=== PATIENT | male | born 1940 | race Caucasian/White ===

== ENCOUNTER 2017-06-15 05:39 | Observation (INO) | payer MEDICARE ==
[2017-06-15] MEDS ORDERED: ANCEF/STERILE WATER 2 GM/20 ML 2 GM/20 ML SYRINGE IV SCH (06:00)
[2017-06-15] MEDS ORDERED: NACL BACTERIOSTATIC INFILTRATI ONE (06:21)
[2017-06-15] MEDS ORDERED: SUBLIMAZE ONE (07:22)
[2017-06-15] MEDS ORDERED: DIPRIVAN 10 MG/ML IV ONE (07:23)
[2017-06-15] MEDS ORDERED: ZEMURON IV ONE (07:24)
[2017-06-15] MEDS ORDERED: MARCAINE-EPI/PF 0.5%-1:200,000 INFILTRATI ONE ×2 (07:27→08:32)
--- NOTE | 2017-06-15 07:28 | Anesthesia Consultation ---
Anesthesia Consult and Med Hx Date of service: 06/15/17 - Airway Anesthetic Teeth Evaluation: Good (some missing teeth) ROM Head & Neck: Adequate - Pre-Operative Health Status ASA Pre-Surgery Classification: ASA2 Proposed Anesthetic Plan: General - Pulmonary Hx Smoking: Yes (1/2 PPD X 60 YRS) Hx Sleep Apnea: No (DEYSI PRE SCREEN HIGH RISK) - Cardiovascular System Hx Hypertension: Yes (X 20 YRS, no meds) - Hematic Hx Anemia: No - Other Systems Hx Cancer: No
[2017-06-15] MEDS ORDERED: ZOFRAN ONE (07:30)
[2017-06-15] MEDS ORDERED: XYLOCAINE MPF 2% ONE (07:30)
[2017-06-15] MEDS ORDERED: ceFAZolin 2 GM in NACL 0.9% 100 ML IV ONE (07:30)
[2017-06-15] MEDS ORDERED: DECADRON ONE (07:30)
--- NOTE | 2017-06-15 07:31 | Anesthesia Day of Surgery ---
Anesthesia Day of Surgery - Day of Surgery Patient Examined: Yes Patient H&P Reviewed: Yes Patient is NPO: Yes
[2017-06-15] MEDS ORDERED: NACL 0.9% 1000 ML 1,000 ML ONE (07:34)
[2017-06-15] MEDS ORDERED: PEPCID IV ONE (07:34)
[2017-06-15] MEDS ORDERED: NACL 0.9% 1000 ML 1,000 ML IV SCH (08:00)
[2017-06-15] MEDS ORDERED: VERSED IV NR (08:00)
[2017-06-15] MEDS ORDERED: PEPCID IV NR (08:00)
[2017-06-15] MEDS ORDERED: ROBINUL ONE ×2 (08:08→08:38)
[2017-06-15] MEDS ORDERED: PROAIR IH ONE (08:08)
[2017-06-15] MEDS ORDERED: NEOSTIGMINE ONE (08:08)
[2017-06-15] MEDS ORDERED: NACL 0.9% 100 ML ONE (08:23)
[2017-06-15] MEDS ORDERED: NEO SYNEPHRINE ONE (08:23)
[2017-06-15] MEDS ORDERED: ZOFRAN IV PRN ×2 (08:30→12:00)
[2017-06-15] MEDS ORDERED: NACL 0.9% IR ONE (08:32)
--- NOTE | 2017-06-15 09:42 | Operative Report ---
PREOPERATIVE DIAGNOSIS: Right inguinal hernia. POSTOPERATIVE DIAGNOSIS: Right inguinal hernia. PROCEDURE: Open right inguinal hernia repair with mesh. SURGEON: Reyes Mendiola MD ANESTHESIA: General. ESTIMATED BLOOD LOSS: Minimal. No drains or complications. PROCEDURE IN DETAIL: The patient was taken to the operating room, prepped and draped in usual sterile fashion. Incision was made using his landmarks, the anterior superior iliac spine and the pubic tubercle. Incision was carried down to the external oblique fascia. External oblique fascia was transected down to the external inguinal ring. Cord was isolated with Hayley drain. The cord itself revealed no indirect sac. A large direct sac was noted, however. The direct hernia was pushed back down into the pelvic cavity. A keyhole Marlex mesh was then used to reconstruct the inguinal canal floor. The mesh was tacked inferiorly to the pubic tubercle and inferior Barrera's ligament. Medially, the mesh was secured to the transversalis fascia and laterally to the iliopubic tract. The cord was then on laid over the mesh. All cord structures were inspected and noted to be intact including the ilioinguinal nerve. The area was irrigated copiously and dry. Checked for hemostasis and noted to be dry. The external oblique fascia was then closed over the cord with running 3-0 Vicryl suture. Subcutaneous tissues irrigated and skin closed with carla. A 0.5% Marcaine was infiltrated over the fascia, subcu, and skin for postoperative pain relief. Ilioinguinal nerve block was also performed. The patient tolerated the procedure well, left the OR in stable condition. JOB# [id number] FP/MICHELE
[2017-06-15] MEDS: DILAUDID IV PRN ×2 (10:07→10:17)
[2017-06-15] MEDS ORDERED: MORPHINE IV PRN (11:00)
[2017-06-15] MEDS ORDERED: NORCO 5/325 PO PRN (12:00)
--- NOTE | 2017-06-15 12:53 | Post Anesthesia Evaluation ---
- Post Anesthesia Evaluation Patient Participated: Yes Airway Patent: Yes Stable Respiratory Function: Yes Nausea/Vomiting: No Temp > 96.8F: Yes Pain Manageable: Yes Adequeate Hydration: Yes Anesthesia Complications: No Block Receding Appropriately: Not Applicable Patient on Ventilator: No
[2017-06-15] MEDS: ANCEF/NS 1 GM/50 ML 1 GM/50 ML BAG IV SCH (16:08)
[2017-06-15] MEDS: COLACE PO SCH (21:48)
[2017-06-15] MEDS: D5W/0.45% NACL/KCL 30 MEQ 30 MEQ/1,000 ML BAG IV SCH (22:18)
--- NOTE | 2017-06-15 23:56 | Consultation ---
History of Present Illness - Reason for Consult Consult date: 06/15/17 Medical management Requesting physician: STEVE ESTRELLA - History of Present Illness 77 y/0 male with PMH of HTN GERD and HLd being seen for medical management.Patient had Rt Inguinal Hernia repair and post op is doing well.No postop complications till now.On clear liquid diet now.Lying in bed and watching TV.No fever/chills.Pain is well controlled. Past History Past Medical History: GERD, hypertension, hyperlipidemia Past Surgical History: hernia repair Social history: no significant social history, lives with family, full code. denies: smoking, alcohol abuse Family history: hypertension Medications and Allergies Allergies Allergy/AdvReac Type Severity Reaction Status Date / Time No Known Allergies Allergy Verified 06/13/17 14:20 Home Medications Medication Instructions Recorded Confirmed Last Taken Type Ascorbic Acid [Vitamin C] 1,000 mg PO DAILY 06/13/17 06/13/17 Unknown History Metoprolol [Lopressor TAB] 50 mg PO BID 06/13/17 06/13/17 Unknown History Ranitidine HCl [Zantac 150 MG TAB] 150 mg PO DAILY 06/13/17 06/13/17 Unknown History Simvastatin [Zocor TAB] 20 mg PO QHS 06/13/17 06/13/17 Unknown History Active Meds: Active Medications Acetaminophen/Hydrocodone Bitart ([place] 5/325) 1 each PO Q4H PRN PRN Reason: Pain, Moderate (4-6) Docusate Sodium (Colace) 100 mg PO BID [facility] Last Admin: 06/15/17 21:48 Dose: 100 mg Cefazolin Sodium (Ancef/Sterile Water 2 Gm/20 Ml) 2 gm in 20 mls @ 80 mls/hr IV PREOP TIEN Stop: 06/15/17 23:59 Cefazolin Sodium (Ancef/Ns 1 Gm/50 Ml) 1 gm in 50 mls @ 100 mls/hr IV Q8H TIEN PRN Reason: Protocol Stop: 06/16/17 00:29 Last Admin: 06/15/17 16:08 Dose: 100 mls/hr Potassium Chloride/Dextrose/Sod Cl (D5w/0.45% Nacl/Kcl 30 Meq) 30 meq in 1,000 mls @ 100 mls/hr IV DIRECT TIEN Last Admin: 06/15/17 22:18 Dose: 100 mls/hr Midazolam HCl (Versed) 2 mg IV PREOP NR Stop: 06/15/17 23:59 Last Admin: 06/15/17 07:39 Dose: 2 mg Morphine Sulfate (Morphine) 2 mg IV Q4H PRN PRN Reason: Pain, Moderate (4-6) Last Admin: 06/15/17 20:41 Dose: 2 mg Ondansetron HCl (Zofran) 4 mg IV Q4H PRN PRN Reason: N/V unrelieved by Reglan Review of Systems All systems: negative Constitutional: no weight loss, no weight gain, no fever, no chills Ears, nose, mouth and throat: no dysphagia, no hoarseness, no sore throat Respiratory: no cough, no cough with sputum, no hemoptysis, no shortness of breath, no dyspnea on exertion Gastrointestinal: no abdominal pain, no nausea, no vomiting, no diarrhea, no constipation Genitourinary Male: no flank pain, no urinary frequency, no urinary hesitancy, no nocturia, no incontinence Rectal: no pain Musculoskeletal: no neck stiffness, no neck pain, no shooting arm pain, no arm numbness/tingling Integumentary: no rash, no pruritis, no redness, no sores, no wounds, no jaundice, no boils, no blisters Neurological: no seizures, no syncope Psychiatric: no anxiety, no memory loss Endocrine: no cold intolerance, no heat intolerance, no polyphagia, no excessive thirst, no polydipsia, no polyuria, no nocturia Hematologic/Lymphatic: no easy bruising, no easy bleeding Allergic/Immunologic: no urticaria, no allergic rhinitis, no wheezing Exam - Physical Exam Narrative exam: Lying comfortably - Constitutional Vitals: Temp Pulse Resp BP Pulse Ox 98.6 F 89 20 180/101 97 06/15/17 22:10 06/15/17 22:11 06/15/17 22:10 06/15/17 22:10 06/15/17 22:11 General appearance: Present: no acute distress, well-nourished - EENT Eyes: Present: PERRL ENT: hearing intact, clear oral mucosa - Neck Neck: Present: supple, normal ROM - Respiratory Respiratory effort: normal Respiratory: bilateral: CTA - Cardiovascular Heart rate: 76 Rhythm: regular Heart Sounds: Present: S1 & S2. Absent: rub, click - Extremities Extremities: no ischemia, pulses intact, pulses symmetrical, No edema Peripheral Pulses: within normal limits - Abdominal General gastrointestinal: Present: soft, non-tender, non-distended, normal bowel sounds, other (Operative site - no signs of infection) Male genitourinary: Present: normal, right inguinal hernia (S/p repair) - Integumentary Integumentary: Present: clear, warm, dry - Musculoskeletal Musculoskeletal: gait normal, strength equal bilaterally - Psychiatric Psychiatric: appropriate mood/affect, intact judgment & insight - Neurologic Neurologic: CNII-XII intact, moves all extremities - Allied Health Allied health notes reviewed: nursing, case management Assessment and Plan - Patient Problems (1) S/P hernia repair Current Visit: Yes Status: Acute Plan to address problem: Right inguinal hernia repair-post op doing well. (2) HTN (hypertension) Current Visit: Yes Status: Chronic Qualifiers: Hypertension type: essential hypertension Qualified Code(s): I10 - Essential (primary) hypertension Plan to address problem: Metoprolol resumed (3) GERD (gastroesophageal reflux disease) Current Visit: Yes Status: Chronic Qualifiers: Esophagitis presence: without esophagitis Qualified Code(s): K21.9 - Gastro -esophageal reflux disease without esophagitis Plan to address problem: Ranitidine increased to 150 mg po bid. (4) HLD (hyperlipidemia) Current Visit: Yes Status: Chronic Qualifiers: Hyperlipidemia type: mixed hyperlipidemia Qualified Code(s): E78.2 - Mixed hyperlipidemia Plan to address problem: Cont Statins (5) Pain management Current Visit: Yes Status: Acute Plan to address problem: Adequate. (6) DVT prophylaxis Current Visit: Yes Status: Acute Plan to address problem: On SCD's
[2017-06-16] MEDS ORDERED: ANCEF/NS 1 GM/50 ML 1 GM/50 ML BAG IV SCH (04:00)
[2017-06-16 05:07] LABS: Basophils % (Auto) 0.2 % (0.0-1.8); Hematocrit 42.5 % (35.5-45.6); Hemoglobin 14.4 gm/dl (11.8-15.2); Mean Corpuscular HGB Conc 34 % (32-34); Mean Corpuscular Hemoglobin 32 pg (28-32); Mean Corpuscular Volume 95 fl (84-94); Platelet Count 239 K/mm3 (140-440); Red Blood Count 4.47 M/mm3 (3.65-5.03); Red Cell Distribution Width 14.3 % (13.2-15.2); White Blood Count 18.5 K/mm3 (4.5-11.0)
[2017-06-16 05:49] LABS: Basophils % (Auto) 0.4 % (0.0-1.8); Hematocrit 41.3 % (35.5-45.6); Hemoglobin 14.2 gm/dl (11.8-15.2); Mean Corpuscular HGB Conc 34 % (32-34); Mean Corpuscular Hemoglobin 32 pg (28-32); Mean Corpuscular Volume 95 fl (84-94); Platelet Count 234 K/mm3 (140-440); Red Blood Count 4.37 M/mm3 (3.65-5.03); Red Cell Distribution Width 14.8 % (13.2-15.2)
[2017-06-16] MEDS: ANCEF/NS 1 GM/50 ML 1 GM/50 ML BAG IV SCH (05:58)
[2017-06-16 06:11] LABS: Alanine Aminotransferase 11 units/L (7-56); Albumin 3.9 g/dL (3.9-5); Albumin/Globulin Ratio 1.3 %; Alkaline Phosphatase 91 units/L (35-129); Anion Gap 19 mmol/L; BUN/Creatinine Ratio 11; Blood Urea Nitrogen 9 mg/dL (9-20); Calcium 8.8 mg/dL (8.4-10.2); Carbon Dioxide 22 mmol/L (22-30); Chloride 98.4 mmol/L (98-107); Glucose 157 mg/dL (75-100); Potassium 4.1 mmol/L (3.6-5.0); Sodium 135 mmol/L (137-145); Total Protein 6.9 g/dL (6.3-8.2)
--- NOTE | 2017-06-16 09:17 | Progress Note ---
Assessment and Plan Assessment and plan: Patient is a 77 y/0 male with PMH of HTN GERD and HLd admitted for right inguinal hernia repair and we are consulted for medical management of HTN. Patient tolerated procedure without any noted complications HTN URGENCY Leukocytosis S/P Rt Inginual Hernia repair Tobacco abuse x 60pack years GERD HLD PLAN: * BB resumed, will add hydralazine for better control * No noted fever or sepsis, monitor leukocytosis for improvement * continue pain control and supportive care. Pain control per surgery. Incentive spirometer ordered, and patient educated * Continue Ranitidne * Tobacco cessation counselling provided in detail x15 mins with community resources discussed * DVT/GI prophy * Plan of care discussed with patient in detail History Interval history: Patient seen and examined in no acute distress. reports headache with no blurry vision or focal neurology deficit. Hospitalist Physical - Physical exam Narrative exam: VITAL SIGNS: Reviewed. GENERAL: The patient appeared well nourished and normally developed. Vital signs as documented. HEAD: No signs of head trauma. EYES: Pupils are equal. Extraocular motions intact. EARS: Hearing grossly intact. MOUTH: Oropharynx is normal. NECK: No adenopathy, no JVD. CHEST: Chest with clear breath sounds bilaterally. No wheezes, rales, or rhonchi. CARDIAC: Regular rate and rhythm. S1 and S2, without murmurs, gallops, or rubs. VASCULAR: No Edema. Peripheral pulses normal and equal in all extremities. ABDOMEN: Soft, without detectable tenderness. No sign of distention. No rebound or guarding, and no masses palpated. Bowel Sounds normal. MUSCULOSKELETAL: Good range of motion of all major joints. Extremities without clubbing, cyanosis or edema. NEUROLOGIC EXAM: Alert and oriented x 3. No focal sensory or strength deficits. Speech normal. Follows commands. PSYCHIATRIC: Mood normal. SKIN: No rash or lesions. - Constitutional Vitals: Temp Pulse Resp BP Pulse Ox 98.9 F 99 H 20 193/91 99 06/16/17 07:18 06/16/17 07:18 06/16/17 07:18 06/16/17 07:18 06/16/17 07:18 General appearance: Present: no acute distress, well-nourished Results - Labs CBC & Chem 7: 06/17/17 04:12 06/16/17 05:31 Labs: Laboratory Last Values WBC 18.0 K/mm3 (4.5-11.0) H 06/16/17 05:31 RBC 4.37 M/mm3 (3.65-5.03) 06/16/17 05:31 Hgb 14.2 gm/dl (11.8-15.2) 06/16/17 05:31 Hct 41.3 % (35.5-45.6) 06/16/17 05:31 MCV 95 fl (84-94) H 06/16/17 05:31 MCH 32 pg (28-32) 06/16/17 05:31 MCHC 34 % (32-34) 06/16/17 05:31 RDW 14.8 % (13.2-15.2) 06/16/17 05:31 Plt Count 234 K/mm3 (140-440) 06/16/17 05:31 Lymph % (Auto) 5.6 % (13.4-35.0) L 06/16/17 05:31 [place] % (Auto) 8.1 % (0.0-7.3) H 06/16/17 05:31 Eos % (Auto) 0.0 % (0.0-4.3) 06/16/17 05:31 Baso % (Auto) 0.4 % (0.0-1.8) 06/16/17 05:31 Lymph # 1.0 K/mm3 (1.2-5.4) L 06/16/17 05:31 [place] # 1.5 K/mm3 (0.0-0.8) H 06/16/17 05:31 Eos # 0.0 K/mm3 (0.0-0.4) 06/16/17 05:31 Baso # 0.1 K/mm3 (0.0-0.1) 06/16/17 05:31 Seg Neutrophils % 85.9 % (40.0-70.0) H 06/16/17 05:31 Seg Neutrophils # 15.4 K/mm3 (1.8-7.7) H 06/16/17 05:31 Sodium 135 mmol/L (137-145) L 06/16/17 05:31 Potassium 4.1 mmol/L (3.6-5.0) 06/16/17 05:31 Chloride 98.4 mmol/L (98-107) 06/16/17 05:31 Carbon Dioxide 22 mmol/L (22-30) 06/16/17 05:31 Anion Gap 19 mmol/L 06/16/17 05:31 BUN 9 mg/dL (9-20) 06/16/17 05:31 Creatinine 0.8 mg/dL (0.8-1.5) 06/16/17 05:31 Estimated GFR > 60 ml/min 06/16/17 05:31 BUN/Creatinine Ratio 11 % 06/16/17 05:31 Glucose 157 mg/dL (75-100) H 06/16/17 05:31 Calcium 8.8 mg/dL (8.4-10.2) 06/16/17 05:31 Total Bilirubin 0.50 mg/dL (0.1-1.2) 06/16/17 05:31 AST 17 units/L (5-40) 06/16/17 05:31 ALT 11 units/L (7-56) 06/16/17 05:31 Alkaline Phosphatase 91 units/L (35-129) 06/16/17 05:31 Total Protein 6.9 g/dL (6.3-8.2) 06/16/17 05:31 Albumin 3.9 g/dL (3.9-5) 06/16/17 05:31 Albumin/Globulin Ratio 1.3 % 06/16/17 05:31
--- NOTE | 2017-06-16 09:54 | Progress Note ---
Subjective Date of service: 06/16/17 Interval history: Pt is awake and alert. No anesthetic related complaints. Objective - Constitutional Vitals: Vital Signs - 12hr 06/15/17 06/15/17 06/16/17 22:10 22:11 00:02 Temperature 98.6 F 98.6 F Pulse Rate 94 H 89 101 H Respiratory 20 16 Rate Blood Pressure 180/101 187/94 O2 Sat by Pulse 96 97 95 Oximetry 06/16/17 06/16/17 04:48 07:18 Temperature 98.9 F 98.9 F Pulse Rate 99 H Respiratory 18 20 Rate Blood Pressure 181/89 193/91 O2 Sat by Pulse 99 Oximetry - Labs CBC & Chem 7: 06/16/17 05:31 06/16/17 05:31 Labs: Abnormal lab results 06/16/17 06/16/17 06/16/17 Range/Units 04:16 05:31 05:31 WBC 18.5 H 18.0 H (4.5-11.0) K/mm3 MCV 95 H 95 H (84-94) fl Lymph % (Auto) 6.3 L 5.6 L (13.4-35.0) % [place] % (Auto) 8.1 H 8.1 H (0.0-7.3) % Lymph # 1.0 L (1.2-5.4) K/mm3 [place] # 1.5 H 1.5 H (0.0-0.8) K/mm3 Seg Neutrophils % 85.4 H 85.9 H (40.0-70.0) % Seg Neutrophils # 15.8 H 15.4 H (1.8-7.7) K/mm3 Sodium 135 L (137-145) mmol/L Glucose 157 H (75-100) mg/dL
[2017-06-16] MEDS: COLACE PO SCH ×2 (10:01→21:49)
[2017-06-16] MEDS: LOPRESSOR PO SCH ×2 (10:37→21:49)
[2017-06-16] MEDS: VITAMIN C PO SCH (10:38)
[2017-06-16] MEDS: PEPCID PO SCH ×2 (10:38→21:50)
--- NOTE | 2017-06-16 11:06 | Progress Note ---
Assessment and Plan POD #1 Pt c/o headache otherwise feeling well. avi cl liq. voided well Op site clean and dry surgically stable uncontrolled HTN. elevated wbc noted advance diet need to achieve better BP control prior to d/c repeat wbc in am Selected Entries 06/16/17 06/16/17 04:48 07:18 Temperature 98.9 F Pulse Rate 99 H Respiratory 18 Rate Blood Pressure 193/91 Laboratory Tests 06/16/17 04:16 RBC 4.47 Hct 42.5 Objective Vital Signs - 12hr 06/16/17 06/16/17 06/16/17 00:02 04:48 07:18 Temperature 98.6 F 98.9 F 98.9 F Pulse Rate 101 H 99 H Respiratory 16 18 20 Rate Blood Pressure 187/94 181/89 193/91 O2 Sat by Pulse 95 99 Oximetry - Labs 06/16/17 05:31 06/16/17 05:31 Diabetes panel 06/16/17 Range/Units 05:31 Sodium 135 L (137-145) mmol/L Potassium 4.1 (3.6-5.0) mmol/L Chloride 98.4 (98-107) mmol/L Carbon Dioxide 22 (22-30) mmol/L BUN 9 (9-20) mg/dL Creatinine 0.8 (0.8-1.5) mg/dL Glucose 157 H (75-100) mg/dL Calcium 8.8 (8.4-10.2) mg/dL AST 17 (5-40) units/L ALT 11 (7-56) units/L Alkaline Phosphatase 91 (35-129) units/L Total Protein 6.9 (6.3-8.2) g/dL Albumin 3.9 (3.9-5) g/dL Calcium panel 06/16/17 Range/Units 05:31 Calcium 8.8 (8.4-10.2) mg/dL Albumin 3.9 (3.9-5) g/dL Pituitary panel 06/16/17 Range/Units 05:31 Sodium 135 L (137-145) mmol/L Potassium 4.1 (3.6-5.0) mmol/L Chloride 98.4 (98-107) mmol/L Carbon Dioxide 22 (22-30) mmol/L BUN 9 (9-20) mg/dL Creatinine 0.8 (0.8-1.5) mg/dL Glucose 157 H (75-100) mg/dL Calcium 8.8 (8.4-10.2) mg/dL Adrenal panel 06/16/17 Range/Units 05:31 Sodium 135 L (137-145) mmol/L Potassium 4.1 (3.6-5.0) mmol/L Chloride 98.4 (98-107) mmol/L Carbon Dioxide 22 (22-30) mmol/L BUN 9 (9-20) mg/dL Creatinine 0.8 (0.8-1.5) mg/dL Glucose 157 H (75-100) mg/dL Calcium 8.8 (8.4-10.2) mg/dL Total Bilirubin 0.50 (0.1-1.2) mg/dL AST 17 (5-40) units/L ALT 11 (7-56) units/L Alkaline Phosphatase 91 (35-129) units/L Total Protein 6.9 (6.3-8.2) g/dL Albumin 3.9 (3.9-5) g/dL
[2017-06-16] MEDS: APRESOLINE IV PRN ×3 (11:30→21:45)
[2017-06-16] MEDS: D5W/0.45% NACL/KCL 30 MEQ 30 MEQ/1,000 ML BAG IV SCH (20:00)
[2017-06-16] MEDS: ZOCOR PO SCH (21:49)
[2017-06-17] MEDS: COLACE PO SCH ×3 (00:05→22:57)
[2017-06-17 04:30] LABS: Basophils % (Auto) 0.5 % (0.0-1.8); Hematocrit 40.3 % (35.5-45.6); Hemoglobin 13.8 gm/dl (11.8-15.2); Mean Corpuscular HGB Conc 34 % (32-34); Mean Corpuscular Hemoglobin 32 pg (28-32); Mean Corpuscular Volume 95 fl (84-94); Platelet Count 213 K/mm3 (140-440); Red Blood Count 4.26 M/mm3 (3.65-5.03); Red Cell Distribution Width 14.4 % (13.2-15.2); White Blood Count 16.1 K/mm3 (4.5-11.0)
[2017-06-17] MEDS: D5W/0.45% NACL/KCL 30 MEQ 30 MEQ/1,000 ML BAG IV SCH (05:19)
[2017-06-17] MEDS: APRESOLINE IV PRN ×4 (05:23→22:59)
--- NOTE | 2017-06-17 07:18 | Progress Note ---
Assessment and Plan POD #2 Pt feeling well. eager to go home. op site clean & dry BP still under poor control surgically stable will d/c if cleared by hospitalist instructed must f/u with PCP MARGARET to better control BP rto this Fri Selected Entries 06/17/17 06/17/17 04:53 05:23 Temperature 98.9 F Pulse Rate 78 Respiratory 18 Rate Blood Pressure 172/89 Laboratory Tests 06/17/17 04:12 WBC 16.1 H Hgb 13.8 Hct 40.3 Objective Vital Signs - 12hr 06/16/17 06/16/17 06/16/17 19:53 20:00 21:45 Temperature 98.7 F Pulse Rate 80 80 Respiratory 18 Rate Respiratory 18 Rate [Right Groin] Blood Pressure 188/92 188/92 O2 Sat by Pulse 97 Oximetry 06/16/17 06/16/17 06/17/17 21:49 22:00 00:11 Temperature 98.9 F Pulse Rate 80 79 Respiratory 20 18 Rate Respiratory 20 Rate [Right Groin] Blood Pressure 188/92 165/81 O2 Sat by Pulse 97 Oximetry 06/17/17 06/17/17 04:53 05:23 Temperature 98.9 F Pulse Rate 78 Respiratory 18 Rate Respiratory Rate [Right Groin] Blood Pressure 172/89 172/89 O2 Sat by Pulse 97 Oximetry - Labs 06/17/17 04:12 06/16/17 05:31
--- NOTE | 2017-06-17 07:20 | Discharge Summary ---
Short Stay Discharge Plan Activity: other (january d/c if cleared by hospitalist. f/u MARGARET with PCP for BP management. no lifting over 5 lbs x 3 wks. keep dressings dry x 5 days. scrotal support x 48 more hrs. surfak I po q am x 3. aleve I po q 6-8 hrs prn for breakthrough pain. rto fri) Weight Bearing Status: Non-Weight Bearing Diet: regular Wound: keep clean and dry Follow up with: STEVE ESTRELLA MD [Staff Physician] - 06/22/17
--- NOTE | 2017-06-17 09:44 | Discharge Summary ---
DISCHARGE DIAGNOSIS: Large right inguinal hernia. PROCEDURE WHILE IN HOSPITAL: Open right inguinal hernia repair with mesh. HOSPITAL COURSE: The patient is a pleasant 77-year-old gentleman who was referred to the office with a symptomatic large right inguinal hernia. At this time, the patient was admitted for open repair. The patient received his preoperative clearance from his primary care physician. The patient underwent open right inguinal hernia repair without incident. His postoperative course was essentially stable. The patient was kept in the hospital for a day of observation due to his age and medical conditions. Subsequently to this, it was noted that the patient had uncontrolled hypertension reaching as high as 188/92. Thus, he was kept in the hospital an additional day for blood pressure management. During his hospitalization, the patient was followed by the hospitalist. Currently, the patient is postoperative day #2, afebrile and feeling quite well. Tolerating a diet. Voiding well. Eager to go home. OpSite is clean and dry. Scrotum shows no evidence of edema or tenderness. The patient will thus be discharged at this time, pending clearance from the hospitalist. The patient has been instructed he needs to follow up with his primary care physician as soon as possible for better blood pressure management and control. He has also been instructed to do no heavy lifting or straining for the next few weeks and to keep his incision dry for the next 5 days. The patient will be followed up in the office this Sunday for suture removal. JOB# [id number] YUAN/MICHELE
[2017-06-17] MEDS: VITAMIN C PO SCH (10:00)
[2017-06-17] MEDS ORDERED: TYLENOL ONE (10:02)
[2017-06-17] MEDS: PEPCID PO SCH ×2 (10:04→22:57)
[2017-06-17] MEDS: LOPRESSOR PO SCH ×2 (10:04→22:57)
--- NOTE | 2017-06-17 10:55 | Progress Note ---
Assessment and Plan Assessment and plan: Patient is a 77 y/0 male with PMH of HTN GERD and HLd admitted for right inguinal hernia repair and we are consulted for medical management of HTN. Patient tolerated procedure without any noted complications HTN Dizziness Leukocytosis S/P Rt Inginual Hernia repair Tobacco abuse x 60pack years Alcohol abuse-weekends only per family GERD HLD PLAN: * BB resumed, blood pressure better controlled. Patient clinically stable for discharge * Add HCTZ to management of elevated bP * Assess CIWA * Surgery managing BOWEL movement related issues, will check KUB * No noted fever or sepsis, monitor leukocytosis for improvement * continue pain control and supportive care. Pain control per surgery. Incentive spirometer ordered, and patient educated * Continue Ranitidne * Tobacco cessation counselling provided in detail x15 mins with community resources discussed * DVT/GI prophy * Plan of care discussed with patient in detail * Discussed with nursing staff. History Interval history: Patient seen and examined in no acute distress. reports headache with no blurry vision or focal neurology deficit. Hospitalist Physical - Physical exam Narrative exam: VITAL SIGNS: Reviewed. GENERAL: The patient appeared well nourished and normally developed. Vital signs as documented. HEAD: No signs of head trauma. EYES: Pupils are equal. Extraocular motions intact. EARS: Hearing grossly intact. MOUTH: Oropharynx is normal. NECK: No adenopathy, no JVD. CHEST: Chest with clear breath sounds bilaterally. No wheezes, rales, or rhonchi. CARDIAC: Regular rate and rhythm. S1 and S2, without murmurs, gallops, or rubs. VASCULAR: No Edema. Peripheral pulses normal and equal in all extremities. ABDOMEN: Soft, without detectable tenderness. Dressing in place. No sign of distention. No rebound or guarding, and no masses palpated. Bowel Sounds normal. MUSCULOSKELETAL: Good range of motion of all major joints. Extremities without clubbing, cyanosis or edema. NEUROLOGIC EXAM: Alert and oriented x 3. No focal sensory or strength deficits. Speech normal. Follows commands. PSYCHIATRIC: Mood normal. SKIN: No rash or lesions. - Constitutional Vitals: Temp Pulse Resp BP Pulse Ox 98.0 F 80 18 163/77 97 06/17/17 07:46 06/17/17 07:46 06/17/17 07:46 06/17/17 07:46 06/17/17 07:46 General appearance: Present: no acute distress, well-nourished Results - Labs CBC & Chem 7: 06/17/17 04:12 06/16/17 05:31 Labs: Laboratory Last Values WBC 16.1 K/mm3 (4.5-11.0) H 06/17/17 04:12 RBC 4.26 M/mm3 (3.65-5.03) 06/17/17 04:12 Hgb 13.8 gm/dl (11.8-15.2) 06/17/17 04:12 Hct 40.3 % (35.5-45.6) 06/17/17 04:12 MCV 95 fl (84-94) H 06/17/17 04:12 MCH 32 pg (28-32) 06/17/17 04:12 MCHC 34 % (32-34) 06/17/17 04:12 RDW 14.4 % (13.2-15.2) 06/17/17 04:12 Plt Count 213 K/mm3 (140-440) 06/17/17 04:12 Lymph % (Auto) 6.3 % (13.4-35.0) L 06/17/17 04:12 [place] % (Auto) 7.9 % (0.0-7.3) H 06/17/17 04:12 Eos % (Auto) 0.0 % (0.0-4.3) 06/17/17 04:12 Baso % (Auto) 0.5 % (0.0-1.8) 06/17/17 04:12 Lymph # 1.0 K/mm3 (1.2-5.4) L 06/17/17 04:12 [place] # 1.3 K/mm3 (0.0-0.8) H 06/17/17 04:12 Eos # 0.0 K/mm3 (0.0-0.4) 06/17/17 04:12 Baso # 0.1 K/mm3 (0.0-0.1) 06/17/17 04:12 Seg Neutrophils % 85.3 % (40.0-70.0) H 06/17/17 04:12 Seg Neutrophils # 13.8 K/mm3 (1.8-7.7) H 06/17/17 04:12 Sodium 135 mmol/L (137-145) L 06/16/17 05:31 Potassium 4.1 mmol/L (3.6-5.0) 06/16/17 05:31 Chloride 98.4 mmol/L (98-107) 06/16/17 05:31 Carbon Dioxide 22 mmol/L (22-30) 06/16/17 05:31 Anion Gap 19 mmol/L 06/16/17 05:31 BUN 9 mg/dL (9-20) 06/16/17 05:31 Creatinine 0.8 mg/dL (0.8-1.5) 06/16/17 05:31 Estimated GFR > 60 ml/min 06/16/17 05:31 BUN/Creatinine Ratio 11 % 06/16/17 05:31 Glucose 157 mg/dL (75-100) H 06/16/17 05:31 POC Glucose 125 (70-105) H 06/17/17 08:17 Calcium 8.8 mg/dL (8.4-10.2) 06/16/17 05:31 Total Bilirubin 0.50 mg/dL (0.1-1.2) 06/16/17 05:31 AST 17 units/L (5-40) 06/16/17 05:31 ALT 11 units/L (7-56) 06/16/17 05:31 Alkaline Phosphatase 91 units/L (35-129) 06/16/17 05:31 Total Protein 6.9 g/dL (6.3-8.2) 06/16/17 05:31 Albumin 3.9 g/dL (3.9-5) 06/16/17 05:31 Albumin/Globulin Ratio 1.3 % 06/16/17 05:31
[2017-06-17] MEDS ORDERED: ANTIVERT PO PRN (11:00)
--- NOTE | 2017-06-17 12:46 | XRay Report ---
SUPINE KUB: History: Abdominal pain. The abdominal gas pattern is unremarkable. No masses or organomegaly is identified and there is no gross evidence of free air or fluid. No significant soft tissue calcifications are noted. Surgical skin carla are noted in the right inguinal region. IMPRESSION: Unremarkable abdomen.
[2017-06-17] MEDS ORDERED: TYLENOL PO PRN (12:54)
[2017-06-17] MEDS: ZOCOR PO SCH (22:57)
[2017-06-18] MEDS: APRESOLINE IV PRN ×2 (05:49→10:36)
[2017-06-18] MEDS: D5W/0.45% NACL/KCL 30 MEQ 30 MEQ/1,000 ML BAG IV SCH (05:49)
[2017-06-18] MEDS ORDERED: HCTZ PO SCH ×2 (08:10→10:00)
[2017-06-18] MEDS: PEPCID PO SCH (09:21)
[2017-06-18] MEDS: VITAMIN C PO SCH (09:21)
[2017-06-18] MEDS: COLACE PO SCH (09:21)
[2017-06-18] MEDS: LOPRESSOR PO SCH (09:22)
--- NOTE | 2017-06-18 09:49 | Progress Note ---
Assessment and Plan Assessment and plan: Patient is a 77 y/0 male with PMH of HTN GERD and HLd admitted for right inguinal hernia repair and we are consulted for medical management of HTN. Patient tolerated procedure without any noted complications HTN Dizziness Leukocytosis S/P Rt Inginual Hernia repair Tobacco abuse x 60pack years Alcohol abuse-weekends only per family GERD HLD PLAN: * BB resumed, blood pressure better controlled. Patient clinically stable for discharge * Recheck BP following administration of BP meds. Bp has been chronically elevated and will need outpatient follow up for gradual improvement. advised to monitor BP and follow with PCP for adjustment. * Add HCTZ to management of elevated bP * Assess CIWA * Surgery managing, moved bowel * No noted fever or sepsis, monitor leukocytosis for improvement * continue pain control and supportive care. Pain control per surgery. Incentive spirometer ordered, and patient educated * Continue Ranitidne * Tobacco cessation counselling provided in detail x15 mins with community resources discussed * DVT/GI prophy * Plan of care discussed with patient in detail * Discussed with nursing staff. History Interval history: Patient seen and examined in no acute distress. No further headache, no nausea, vomiting. reported urinary hesitancy. Hospitalist Physical - Physical exam Narrative exam: VITAL SIGNS: Reviewed. GENERAL: The patient appeared well nourished and normally developed. Vital signs as documented. HEAD: No signs of head trauma. EYES: Pupils are equal. Extraocular motions intact. EARS: Hearing grossly intact. MOUTH: Oropharynx is normal. NECK: No adenopathy, no JVD. CHEST: Chest with clear breath sounds bilaterally. No wheezes, rales, or rhonchi. CARDIAC: Regular rate and rhythm. S1 and S2, without murmurs, gallops, or rubs. VASCULAR: No Edema. Peripheral pulses normal and equal in all extremities. ABDOMEN: Soft, without detectable tenderness. Dressing in place. No sign of distention. No rebound or guarding, and no masses palpated. Bowel Sounds normal. MUSCULOSKELETAL: Good range of motion of all major joints. Extremities without clubbing, cyanosis or edema. NEUROLOGIC EXAM: Alert and oriented x 3. No focal sensory or strength deficits. Speech normal. Follows commands. PSYCHIATRIC: Mood normal. SKIN: No rash or lesions. - Constitutional Vitals: Temp Pulse Resp BP Pulse Ox 97.8 F 83 20 193/90 95 06/18/17 07:24 06/18/17 09:22 06/18/17 07:24 06/18/17 09:22 06/17/17 22:11 General appearance: Present: no acute distress, well-nourished Results - Labs CBC & Chem 7: 06/17/17 04:12 06/16/17 05:31 Labs: Laboratory Last Values WBC 16.1 K/mm3 (4.5-11.0) H 06/17/17 04:12 RBC 4.26 M/mm3 (3.65-5.03) 06/17/17 04:12 Hgb 13.8 gm/dl (11.8-15.2) 06/17/17 04:12 Hct 40.3 % (35.5-45.6) 06/17/17 04:12 MCV 95 fl (84-94) H 06/17/17 04:12 MCH 32 pg (28-32) 06/17/17 04:12 MCHC 34 % (32-34) 06/17/17 04:12 RDW 14.4 % (13.2-15.2) 06/17/17 04:12 Plt Count 213 K/mm3 (140-440) 06/17/17 04:12 Lymph % (Auto) 6.3 % (13.4-35.0) L 06/17/17 04:12 Yates % (Auto) 7.9 % (0.0-7.3) H 06/17/17 04:12 Eos % (Auto) 0.0 % (0.0-4.3) 06/17/17 04:12 Baso % (Auto) 0.5 % (0.0-1.8) 06/17/17 04:12 Lymph # 1.0 K/mm3 (1.2-5.4) L 06/17/17 04:12 Yates # 1.3 K/mm3 (0.0-0.8) H 06/17/17 04:12 Eos # 0.0 K/mm3 (0.0-0.4) 06/17/17 04:12 Baso # 0.1 K/mm3 (0.0-0.1) 06/17/17 04:12 Seg Neutrophils % 85.3 % (40.0-70.0) H 06/17/17 04:12 Seg Neutrophils # 13.8 K/mm3 (1.8-7.7) H 06/17/17 04:12 Sodium 135 mmol/L (137-145) L 06/16/17 05:31 Potassium 4.1 mmol/L (3.6-5.0) 06/16/17 05:31 Chloride 98.4 mmol/L (98-107) 06/16/17 05:31 Carbon Dioxide 22 mmol/L (22-30) 06/16/17 05:31 Anion Gap 19 mmol/L 06/16/17 05:31 BUN 9 mg/dL (9-20) 06/16/17 05:31 Creatinine 0.8 mg/dL (0.8-1.5) 06/16/17 05:31 Estimated GFR > 60 ml/min 06/16/17 05:31 BUN/Creatinine Ratio 11 % 06/16/17 05:31 Glucose 157 mg/dL (75-100) H 06/16/17 05:31 POC Glucose 125 (70-105) H 06/17/17 08:17 Calcium 8.8 mg/dL (8.4-10.2) 06/16/17 05:31 Total Bilirubin 0.50 mg/dL (0.1-1.2) 06/16/17 05:31 AST 17 units/L (5-40) 06/16/17 05:31 ALT 11 units/L (7-56) 06/16/17 05:31 Alkaline Phosphatase 91 units/L (35-129) 06/16/17 05:31 Total Protein 6.9 g/dL (6.3-8.2) 06/16/17 05:31 Albumin 3.9 g/dL (3.9-5) 06/16/17 05:31 Albumin/Globulin Ratio 1.3 % 06/16/17 05:31
[2017-06-18] MEDS ORDERED: FLOMAX PO SCH ×2 (10:00→14:00)
[2017-06-18 11:56] VITALS: BP 179/89
--- NOTE | 2017-06-18 12:26 | Progress Note ---
Assessment and Plan Pt had episode of dizziness yesterday thus d/c held. Sitting up in chair this am eating lunch still uncontrolled HTN Selected Entries 06/18/17 06/18/17 06/18/17 07:24 11:55 11:57 Blood Pressure 183/91 179/89 179/89 [Left] Discussed with hospitalist HTN added to regimen surgically stable to be d/c'ed when medically cleared Objective Vital Signs - 12hr 06/18/17 06/18/17 06/18/17 04:39 05:49 07:24 Temperature 98.5 F 97.8 F Pulse Rate 82 82 85 Respiratory 18 20 Rate Blood Pressure 167/97 Blood Pressure 167/97 183/91 [Left] 06/18/17 06/18/17 06/18/17 09:22 10:36 11:55 Temperature 98.5 F Pulse Rate 83 84 Respiratory 20 Rate Blood Pressure 193/90 175/85 Blood Pressure 179/89 [Left] 06/18/17 11:57 Temperature 98.5 F Pulse Rate 84 Respiratory 20 Rate Blood Pressure Blood Pressure 179/89 [Left] - Labs 06/17/17 04:12 06/16/17 05:31
--- NOTE | 2017-06-18 13:12 | Consultation ---
History of Present Illness - Reason for Consult Consult date: 06/18/17 - History of Present Illness Patient is a 77 y/0 male with PMH of HTN GERD and HLd admitted for right inguinal hernia repair and we are consulted for medical management of HTN. Patient tolerated procedure without any noted complications HTN (dehydrated vs HCTZ SE??) Dizziness Leukocytosis S/P Rt Inginual Hernia repair Tobacco abuse x 60pack years Alcohol abuse-weekends only per family GERD A/P bph brochure start flomax---trial bladder scan Past History Past Medical History: GERD, hypertension, hyperlipidemia Past Surgical History: hernia repair Social history: no significant social history, lives with family, full code. denies: smoking, alcohol abuse Family history: hypertension Medications and Allergies Allergies Allergy/AdvReac Type Severity Reaction Status Date / Time No Known Allergies Allergy Verified 06/13/17 14:20 Home Medications Medication Instructions Recorded Confirmed Last Taken Type Ascorbic Acid [Vitamin C] 1,000 mg PO DAILY 06/13/17 06/13/17 Unknown History Metoprolol [Lopressor TAB] 50 mg PO BID 06/13/17 06/13/17 Unknown History Ranitidine HCl [Zantac 150 MG TAB] 150 mg PO DAILY 06/13/17 06/13/17 Unknown History Simvastatin [Zocor TAB] 20 mg PO QHS 06/13/17 06/13/17 Unknown History HYDROcodone/APAP 5-325 [[place] 1 each PO Q4HR PRN #30 tablet 06/17/17 Unknown Rx 5/325] Hydrochlorothiazide [HCTZ] 25 mg PO QDAY #20 tablet 06/18/17 Unknown Rx Active Meds: Active Medications Acetaminophen (Tylenol) 650 mg PO Q4H PRN PRN Reason: Pain, Mild (1-3) Acetaminophen/Hydrocodone Bitart ([place] 5/325) 1 each PO Q4H PRN PRN Reason: Pain, Moderate (4-6) Ascorbic Acid (Vitamin C) 1,000 mg PO DAILY [facility] Last Admin: 06/18/17 09:21 Dose: 1,000 mg Docusate Sodium (Colace) 100 mg PO BID [facility] Last Admin: 06/18/17 09:21 Dose: 100 mg Famotidine (Pepcid) 20 mg PO BID [facility] Last Admin: 06/18/17 09:21 Dose: 20 mg Hydralazine HCl (Apresoline) 10 mg IV Q4HR PRN PRN Reason: Hypertension Last Admin: 06/18/17 10:36 Dose: 10 mg Hydrochlorothiazide (Hctz) 25 mg PO QDAY [facility] Last Admin: 06/18/17 09:22 Dose: 25 mg Potassium Chloride/Dextrose/Sod Cl (D5w/0.45% Nacl/Kcl 30 Meq) 30 meq in 1,000 mls @ 100 mls/hr IV DIRECT [facility] Last Admin: 06/18/17 05:49 Dose: 100 mls/hr Meclizine HCl (Antivert) 25 mg PO Q8H PRN PRN Reason: Vertigo Metoprolol Tartrate (Lopressor) 50 mg PO BID [facility] Last Admin: 06/18/17 09:22 Dose: 50 mg Morphine Sulfate (Morphine) 2 mg IV Q4H PRN PRN Reason: Pain, Moderate (4-6) Last Admin: 06/15/17 20:41 Dose: 2 mg Ondansetron HCl (Zofran) 4 mg IV Q4H PRN PRN Reason: N/V unrelieved by Shivani Simvastatin (Zocor) 20 mg PO QHS [facility] Last Admin: 06/17/17 22:57 Dose: 20 mg Exam - Constitutional Vitals: Temp Pulse Resp BP Pulse Ox 98.5 F 84 20 179/89 95 06/18/17 11:57 06/18/17 11:57 06/18/17 11:57 06/18/17 11:57 06/17/17 22:11 Results - Labs CBC & Chem 7: 06/17/17 04:12 06/16/17 05:31
== END 2017-06-18 15:30 | disposition home or self-care (01) ==
LOC: OR 05:39 → 3B-SURG 09:15
PROVIDERS: ADMIT Surgery; ATTEND Surgery
DX: K40.90 Unilateral inguinal hernia, without obstruction or gangrene, not specified as recurrent (principal); K21.9 Gastro-esophageal reflux disease without esophagitis; I10 Essential (primary) hypertension; R42 Dizziness and giddiness; E78.5 Hyperlipidemia, unspecified
CPT/HCPCS: 36415; 49505; 74000; 80053; 82962; 85025; 96365; 96375; 96376; C1781; G0378; J0360; J0690; J1100; J1170; J2250; J2270; J2370; J2405; J2704; J2710; J3010; J7030